=== PATIENT | female | born 1935 | race Caucasian/White ===

== ENCOUNTER 2022-11-08 10:19 | Emergency (ER) | payer OTHER, BC ==
[2022-11-08 10:34] VITALS: BMI 20.9
[2022-11-08] MEDS ORDERED: ACETAMINOPHEN 1000 MG/100 ML BAG IVPB ONE (10:57)
[2022-11-08] MEDS ORDERED: ACETAMINOPHEN INJECTION 100 ML IVPB ONE (11:06)
[2022-11-08 12:11] LABS: BASO % 0.9 % (0-2.0); EOS % 2.8 % (0-4.5); HEMOGLOBIN 14.2 GM/dL (10.7-15.3); LYMPH % 22.7 % (8-40); MCH 29.3 pg (25.7-33.7); MCHC 33.8 g/dl (32.0-36.0); MEAN CELL VOLUME 86.8 fl (80-96); MEAN PLT VOLUME 8.8 fl (7.5-11.1); MONO % 9.7 % (3.8-10.2); NEUT % 63.9 % (42.8-82.8); PLATELET COUNT 222 10^3/uL (134-434); RBC 4.84 M/mm3 (3.60-5.2); RDW 15.3 % (11.6-15.6); WHITE BLOOD COUNT 7.5 K/mm3 (4.0-10.0)
[2022-11-08 12:34] LABS: ALBUMIN 3.5 g/dl (3.4-5.0); BLOOD UREA NITROGEN 11.8 mg/dL (7-18)
[2022-11-08 12:36] LABS: CALCIUM 9.2 mg/dL (8.5-10.1)
[2022-11-08 12:39] LABS: CREATININE 0.7 mg/dL (0.55-1.3)
[2022-11-08 12:40] LABS: TOT PROT 7.4 g/dl (6.4-8.2)
[2022-11-08 12:41] LABS: BILIRUBIN,TOTAL 0.3 mg/dL (0.2-1)
[2022-11-08] MEDS ORDERED: SODIUM CHLORIDE 0.9% 500 ML INFUS.BAG IV ONE (12:59)
[2022-11-08 15:14] VITALS: RESP 16; TEMP 97.5
[2022-11-08 15:50] LABS: EPI CELLS 11 /uL (0-25.1); HYALINE CASTS 3 /uL (0-3.1); PH,URINE 5.5 (5.0-8.0); URINE APPEARANCE TURBID; URINE BACTERIA >9,000 /uL (0-1359); URINE BILIRUBIN NEGATIVE (NEGATIVE); URINE COLOR YELLOW; URINE GLUCOSE (UA) NEGATIVE (NEGATIVE); URINE KETONE NEGATIVE (NEGATIVE); URINE LEUK ESTERASE 3+ (NEGATIVE); URINE NITRITE NEGATIVE (NEGATIVE); URINE PROTEIN 1+ (NEGATIVE); URINE RBC 114 /uL (0-23.9); URINE UROBILINOGEN 0.2 mg/dL (0.2-1.0); URINE WBC 7961 /uL (0-25.8)
[2022-11-08] MEDS ORDERED: PHENAZOPYRIDINE HCL 100 MG TABLET (FP) PO ONE (16:09)
[2022-11-08] MEDS ORDERED: NITROFURANTOIN MACROCRYSTAL 50 MG CAPSULE (FP) PO SCH (16:15)
[2022-11-08] MEDS ORDERED: NITROFURANTOIN MACROCRYSTAL 50 MG CAPSULE (FP) ONE (16:26)
[2022-11-08] MEDS ORDERED: PHENAZOPYRIDINE HCL 100 MG TABLET (FP) ONE (16:27)
[2022-11-08 19:49] VITALS: BP 123/57; PULSE 64
== END 2022-11-08 20:32 | disposition home or self-care (01) ==
LOC: JER 10:19
PROC: 3E033NZ Introduction of Analgesics, Hypnotics, Sedatives into Peripheral Vein, Percutaneous Approach (ICD-10-PCS; principal; 2022-11-08)
DX: N39.0 Urinary tract infection, site not specified (principal); R30.0 Dysuria; R10.30 Lower abdominal pain, unspecified
CPT/HCPCS: 36415; 74177-TC; 80053; 81003; 85025; 87086; 87186; 99285-25; Q9967

== ENCOUNTER 2022-12-14 14:37 | Inpatient (IN) | payer OTHER, BC ==
[2022-12-14 15:49] LABS: BASO % 0.9 % (0-2.0); EOS % 5.7 % (0-4.5); HEMATOCRIT 39.9 % (32.4-45.2); HEMOGLOBIN 13.4 GM/dL (10.7-15.3); LYMPH % 32.8 % (8-40); MCH 29.5 pg (25.7-33.7); MCHC 33.7 g/dl (32.0-36.0); MEAN CELL VOLUME 87.5 fl (80-96); NEUT % 52.6 % (42.8-82.8); PLATELET COUNT 243 10^3/uL (134-434); RBC 4.56 M/mm3 (3.60-5.2); RDW 14.7 % (11.6-15.6); WHITE BLOOD COUNT 8.7 K/mm3 (4.0-10.0)
[2022-12-14 16:10] LABS: POTASSIUM 5.1 mmol/L (3.5-5.1)
[2022-12-14 16:11] LABS: ALBUMIN 3.4 g/dl (3.4-5.0); BLOOD UREA NITROGEN 14.4 mg/dL (7-18); CALCIUM 9.5 mg/dL (8.5-10.1)
[2022-12-14 16:15] LABS: CREATININE 0.5 mg/dL (0.55-1.3)
[2022-12-14 16:16] LABS: BILIRUBIN,TOTAL 0.4 mg/dL (0.2-1); TOT PROT 7.5 g/dl (6.4-8.2)
[2022-12-14 16:50] LABS: EPI CELLS 7 /uL (0-25.1); HYALINE CASTS 1 /uL (0-3.1); PH,URINE 6.5 (5.0-8.0); URINE APPEARANCE TURBID; URINE BACTERIA >9,000 /uL (0-1359); URINE BILIRUBIN NEGATIVE (NEGATIVE); URINE COLOR YELLOW; URINE GLUCOSE (UA) NEGATIVE (NEGATIVE); URINE KETONE NEGATIVE (NEGATIVE); URINE LEUK ESTERASE 3+ (NEGATIVE); URINE NITRITE POSITIVE (NEGATIVE); URINE PROTEIN 2+ (NEGATIVE); URINE RBC 106 /uL (0-23.9); URINE UROBILINOGEN 0.2 mg/dL (0.2-1.0); URINE WBC 7949 /uL (0-25.8)
[2022-12-14] MEDS ORDERED: GENTAMICIN INJECTION 100 MG in SODIUM CHLORIDE 97.5 ML IVPB ONE ×2 (18:26→19:30)
[2022-12-14] MEDS ORDERED: GENTAMICIN 100 MG/100 ML BAG IVPB ONE (18:36)
[2022-12-15] MEDS ORDERED: HEPARIN NA (PORCINE) 5,000 UNITS/ML 1ML VIAL ONE (04:21)
[2022-12-15] MEDS ORDERED: PANTOPRAZOLE 40 MG TABLET PO ONE (04:21)
[2022-12-15] MEDS: PANTOPRAZOLE 40 MG TABLET PO SCH ×2 (04:24→09:33)
[2022-12-15] MEDS: HEPARIN NA (PORCINE) 5,000 UNITS/ML 1ML VIAL SQ SCH ×4 (04:24→21:05)
[2022-12-15] MEDS: LEVOTHYROXINE NA 25 MCG TABLET (FP) PO SCH (07:21)
[2022-12-15] MEDS: ACETAMINOPHEN 325 MG TABLET (FP) PO PRN ×2 (09:33→20:07)
[2022-12-15] MEDS: CHOLECALCIFEROL (VIT D3) 1,000 UNIT (25 MCG) TABLET PO SCH (09:33)
[2022-12-15] MEDS: CYANOCOBALAMIN 1,000 MCG TABLET (FP) PO SCH (10:33)
[2022-12-15] MEDS: ERTAPENEM SODIUM 1 GM in SODIUM CHLORIDE 50 ML IVPB SCH (17:22)
[2022-12-16] MEDS: LEVOTHYROXINE NA 25 MCG TABLET (FP) PO SCH (06:04)
[2022-12-16] MEDS: HEPARIN NA (PORCINE) 5,000 UNITS/ML 1ML VIAL SQ SCH ×3 (06:04→21:22)
[2022-12-16] MEDS: ACETAMINOPHEN 325 MG TABLET (FP) PO PRN ×2 (07:00→18:09)
[2022-12-16] MEDS: CHOLECALCIFEROL (VIT D3) 1,000 UNIT (25 MCG) TABLET PO SCH (09:11)
[2022-12-16] MEDS: PANTOPRAZOLE 40 MG TABLET PO SCH (09:12)
[2022-12-16] MEDS: CYANOCOBALAMIN 1,000 MCG TABLET (FP) PO SCH (09:12)
[2022-12-16 10:41] LABS: BASO % 0.3 % (0-2.0); EOS % 3.5 % (0-4.5); HEMATOCRIT 42.9 % (32.4-45.2); HEMOGLOBIN 14.7 GM/dL (10.7-15.3); LYMPH % 29.2 % (8-40); MCHC 34.2 g/dl (32.0-36.0); MEAN CELL VOLUME 87.8 fl (80-96); MONO % 5.3 % (3.8-10.2); NEUT % 61.7 % (42.8-82.8); PLATELET COUNT 229 10^3/uL (134-434); RBC 4.89 M/mm3 (3.60-5.2); RDW 14.3 % (11.6-15.6); WHITE BLOOD COUNT 6.7 K/mm3 (4.0-10.0)
[2022-12-16] MEDS: ERTAPENEM SODIUM 1 GM in SODIUM CHLORIDE 50 ML IVPB SCH (10:44)
[2022-12-16 11:04] LABS: POTASSIUM 4.2 mmol/L (3.5-5.1)
[2022-12-16 11:12] LABS: CALCIUM 8.9 mg/dL (8.5-10.1)
[2022-12-16 11:15] LABS: CREATININE 0.6 mg/dL (0.55-1.3)
[2022-12-17] MEDS: HEPARIN NA (PORCINE) 5,000 UNITS/ML 1ML VIAL SQ SCH ×3 (06:09→22:12)
[2022-12-17] MEDS: LEVOTHYROXINE NA 25 MCG TABLET (FP) PO SCH (06:09)
[2022-12-17] MEDS: CYANOCOBALAMIN 1,000 MCG TABLET (FP) PO SCH (09:03)
[2022-12-17] MEDS: CHOLECALCIFEROL (VIT D3) 1,000 UNIT (25 MCG) TABLET PO SCH (09:03)
[2022-12-17] MEDS: PANTOPRAZOLE 40 MG TABLET PO SCH (09:03)
[2022-12-17] MEDS: ERTAPENEM SODIUM 1 GM in SODIUM CHLORIDE 50 ML IVPB SCH (10:37)
[2022-12-18] MEDS: ACETAMINOPHEN 325 MG TABLET (FP) PO PRN (04:29)
[2022-12-18] MEDS: LEVOTHYROXINE NA 25 MCG TABLET (FP) PO SCH (06:20)
[2022-12-18] MEDS: HEPARIN NA (PORCINE) 5,000 UNITS/ML 1ML VIAL SQ SCH ×3 (06:20→21:41)
[2022-12-18] MEDS: CHOLECALCIFEROL (VIT D3) 1,000 UNIT (25 MCG) TABLET PO SCH (10:03)
[2022-12-18] MEDS: PANTOPRAZOLE 40 MG TABLET PO SCH (10:03)
[2022-12-18] MEDS: ERTAPENEM SODIUM 1 GM in SODIUM CHLORIDE 50 ML IVPB SCH (10:04)
[2022-12-18] MEDS: CYANOCOBALAMIN 1,000 MCG TABLET (FP) PO SCH (10:04)
[2022-12-19] MEDS: HEPARIN NA (PORCINE) 5,000 UNITS/ML 1ML VIAL SQ SCH ×2 (06:33→14:24)
[2022-12-19] MEDS: LEVOTHYROXINE NA 25 MCG TABLET (FP) PO SCH (06:33)
[2022-12-19] MEDS: PANTOPRAZOLE 40 MG TABLET PO SCH (09:13)
[2022-12-19] MEDS: CHOLECALCIFEROL (VIT D3) 1,000 UNIT (25 MCG) TABLET PO SCH (09:13)
[2022-12-19] MEDS: CYANOCOBALAMIN 1,000 MCG TABLET (FP) PO SCH (09:14)
[2022-12-19] MEDS: ERTAPENEM SODIUM 1 GM in SODIUM CHLORIDE 50 ML IVPB SCH (09:14)
[2022-12-19 13:40] VITALS: BP 115/52; PULSE 79; RESP 18; TEMP 97.8
== END 2022-12-19 20:57 | disposition home or self-care (01) | DRG 690 ==
LOC: JER 14:37 → JERBED 18:35 → J6S 12-15 06:38
PROVIDERS: ADMIT Internal Medicine; ATTEND Internal Medicine
DX: N39.0 Urinary tract infection, site not specified (principal); E03.9 Hypothyroidism, unspecified; G14 Postpolio syndrome; K21.9 Gastro-esophageal reflux disease without esophagitis; I73.9 Peripheral vascular disease, unspecified; R30.0 Dysuria; R33.9 Retention of urine, unspecified; M62.81 Muscle weakness (generalized); E78.5 Hyperlipidemia, unspecified; B96.1 Klebsiella pneumoniae [K. pneumoniae] as the cause of diseases classified elsewhere; B95.2 Enterococcus as the cause of diseases classified elsewhere
CPT/HCPCS: 0241U-QW; 36415; 80048; 80053; 81003; 83690; 85025; 87040; 87086; 87186; 93005; 93010; 97116-GP; 97162-GP; 99285-25; J1644

== ENCOUNTER 2023-01-27 11:42 | Emergency (ER) | payer OTHER, BC ==
[2023-01-27 11:49] VITALS: TEMP 97.5; BMI 20.5
[2023-01-27 12:56] LABS: EPI CELLS 7 /uL (0-25.1); HYALINE CASTS 1 /uL (0-3.1); URINE APPEARANCE CLOUDY; URINE BACTERIA 1718 /uL (0-1359); URINE BILIRUBIN NEGATIVE (NEGATIVE); URINE COLOR YELLOW; URINE GLUCOSE (UA) NEGATIVE (NEGATIVE); URINE KETONE NEGATIVE (NEGATIVE); URINE LEUK ESTERASE 3+ (NEGATIVE); URINE NITRITE NEGATIVE (NEGATIVE); URINE PROTEIN NEGATIVE (NEGATIVE); URINE UROBILINOGEN 0.2 mg/dL (0.2-1.0); URINE WBC 189 /uL (0-25.8)
[2023-01-27] MEDS ORDERED: NITROFURANTOIN MACROCRYSTAL 50 MG CAPSULE (FP) ONE (13:54)
[2023-01-27] MEDS ORDERED: NITROFURANTOIN MACROCRYSTAL 50 MG CAPSULE (FP) PO SCH (14:30)
[2023-01-27 15:33] LABS: URINE CRYSTALS NEGATIVE /hpf; URINE RBC 22.9 /uL (0-23.9); YEAST NEGATIVE (NEGATIVE)
[2023-01-27 18:53] VITALS: BP 112/63; PULSE 71; RESP 18
== END 2023-01-27 18:40 | disposition home or self-care (01) ==
LOC: JER 11:42
DX: R39.15 Urgency of urination (principal); R39.198 Other difficulties with micturition; R39.14 Feeling of incomplete bladder emptying; N30.00 Acute cystitis without hematuria
CPT/HCPCS: 81003; 87086; 87186; 99283-25

== ENCOUNTER 2023-11-06 02:56 | Inpatient (IN) | payer OTHER, BC ==
[2023-11-06] MEDS ORDERED: ACETAMINOPHEN 500 MG TABLET (FP) PO ONE (03:25)
[2023-11-06] MEDS ORDERED: ACETAMINOPHEN INJECTION 100 ML IVPB ONE (03:41)
[2023-11-06] MEDS: ACETAMINOPHEN 1000 MG/100 ML BAG IVPB ONE (04:13)
[2023-11-06 04:24] LABS: HEMOGLOBIN 13.3 GM/dL (10.7-15.3); MEAN PLT VOLUME 9.4 fl (7.5-11.1)
[2023-11-06 04:41] LABS: HEMATOCRIT 38.4 % (32.4-45.2); MCH 30.3 pg (25.7-33.7); MCHC 34.6 g/dl (32.0-36.0); MEAN CELL VOLUME 87.7 fl (80-96); RBC 4.38 M/mm3 (3.60-5.2); RDW 14.5 % (11.6-15.6)
[2023-11-06 04:43] LABS: CHLORIDE 99 mmol/L (98-107); SODIUM 131 mmol/L (136-145)
[2023-11-06] MEDS: SODIUM CHLORIDE 0.9% 500 ML INFUS.BAG IV ONE ×2 (04:44→06:05)
[2023-11-06 04:45] LABS: ALBUMIN 2.9 g/dl (3.4-5.0); BLOOD UREA NITROGEN 20.5 mg/dL (7-18); CALCIUM 9.2 mg/dL (8.5-10.1); CO2 28 mmol/L (21-32); MAGNESIUM 2.2 mg/dL (1.8-2.4)
[2023-11-06 04:46] LABS: GLUCOSE,RANDOM 158 mg/dL (74-106)
[2023-11-06 04:48] LABS: CREATININE 1.2 mg/dL (0.55-1.3); SGOT/AST 72 U/L (15-37); SGPT/ALT 39 U/L (13-61)
[2023-11-06 04:50] LABS: BILIRUBIN,TOTAL 1.5 mg/dL (0.2-1); TOT PROT 7.6 g/dl (6.4-8.2)
[2023-11-06 04:51] LABS: ALK PHOS 95 U/L (45-117)
[2023-11-06 04:59] LABS: WHITE BLOOD COUNT 22.9 K/mm3 (4.0-10.0)
[2023-11-06 05:22] LABS: ANION GAP 3 mmol/L (4-13); POTASSIUM 7.7 mmol/L (3.5-5.1)
[2023-11-06 06:36] LABS: POTASSIUM 4.5 mmol/L (3.5-5.1)
[2023-11-06 06:39] LABS: ALBUMIN 2.3 g/dl (3.4-5.0); BLOOD UREA NITROGEN 21.3 mg/dL (7-18)
[2023-11-06 06:42] LABS: CREATININE 0.9 mg/dL (0.55-1.3)
[2023-11-06 06:44] LABS: TOT PROT 5.7 g/dl (6.4-8.2)
[2023-11-06 06:52] LABS: ANISOCYTOSIS 0; MACROCYTOSIS 0
[2023-11-06 06:53] LABS: PLATELET COUNT 247.5 10^3/uL (134-434)
[2023-11-06 06:57] LABS: INR 1.29 (0.83-1.09); PROTHROMBIN TIME (PATIENT) 14.9 SEC (9.7-13.0)
[2023-11-06 07:00] LABS: ACTIVATED PTT 25.1 SECONDS (25.2-36.5)
[2023-11-06] MEDS ORDERED: CEFTRIAXONE 1 GM/50 ML BAG ONE (07:01)
[2023-11-06] MEDS: CEFTRIAXONE 1 GM in DEXTROSE 5%-WATER - 100 ML IVPB ONE (07:05)
[2023-11-06 07:21] LABS: CALCIUM 7.7 mg/dL (8.5-10.1)
[2023-11-06 08:05] LABS: EPI CELLS 24 /uL (0-25.1); HYALINE CASTS 1 /uL (0-3.1); PH,URINE 6.5 (5.0-8.0); URINE APPEARANCE Turbid; URINE BACTERIA 239 /uL (0-1359); URINE BILIRUBIN Negative (NEGATIVE); URINE COLOR Yellow; URINE GLUCOSE (UA) Negative (NEGATIVE); URINE KETONE Trace (NEGATIVE); URINE LEUK ESTERASE Moderate (NEGATIVE); URINE NITRITE Negative (NEGATIVE); URINE PROTEIN 100 (NEGATIVE); URINE UROBILINOGEN 0.2 mg/dL (0.2-1.0); URINE WBC 21185 /uL (0-25.8)
[2023-11-06] MEDS ORDERED: ONDANSETRON 4 MG/2 ML VIAL IVPUSH PRN (08:06)
[2023-11-06] MEDS ORDERED: LEVOTHYROXINE NA 25 MCG TABLET (FP) ONE (08:18)
[2023-11-06] MEDS ORDERED: PANTOPRAZOLE SODIUM 40 MG VIAL ONE (08:18)
[2023-11-06] MEDS: D5-1/2NS+10 MEQ KCL - 10 MEQ/1,000 ML INFUS.BAG IV SCH ×2 (08:22→13:34)
[2023-11-06] MEDS: LEVOTHYROXINE NA 25 MCG TABLET (FP) PO SCH (08:22)
[2023-11-06] MEDS: PANTOPRAZOLE SODIUM 40 MG VIAL IVPUSH SCH (08:23)
[2023-11-06] MEDS: CHOLECALCIFEROL (VIT D3) 1,000 UNIT (25 MCG) TABLET PO SCH (09:43)
[2023-11-06] MEDS: CYANOCOBALAMIN 1,000 MCG TABLET (FP) PO SCH (09:43)
[2023-11-06 10:13] LABS: URINE RBC 397.7 /uL (0-23.9); YEAST NONE SEEN (NEGATIVE)
[2023-11-06] MEDS ORDERED: ACETAMINOPHEN 325 MG TABLET (FP) ONE (12:24)
[2023-11-06] MEDS: ACETAMINOPHEN 325 MG TABLET (FP) PO PRN (12:27)
[2023-11-06] MEDS ORDERED: ASCORBIC ACID 500 MG TABLET (FP) ONE ×2 (13:38→21:52)
[2023-11-06] MEDS ORDERED: HEPARIN NA (PORCINE) 5,000 UNITS/ML 1ML VIAL ONE ×2 (13:39→21:53)
[2023-11-06] MEDS: HEPARIN NA (PORCINE) 5,000 UNITS/ML 1ML VIAL SQ SCH (13:44)
[2023-11-06] MEDS: ASCORBIC ACID 500 MG TABLET (FP) PO SCH (13:44)
[2023-11-06] MEDS: PANTOPRAZOLE 40 MG TABLET PO SCH (14:26)
[2023-11-06] MEDS ORDERED: ATORVASTATIN CA 10 MG TABLET (FP) ONE (21:52)
[2023-11-06] MEDS ORDERED: TAMSULOSIN HCL 0.4 MG CAP ONE (21:53)
[2023-11-06] MEDS: ATORVASTATIN CA 10 MG TABLET (FP) PO SCH (22:00)
[2023-11-06] MEDS: TAMSULOSIN HCL 0.4 MG CAP PO SCH (22:00)
[2023-11-07 01:11] VITALS: BMI 20.7
[2023-11-07 05:09] VITALS: RESP 18
[2023-11-07] MEDS: CEFTRIAXONE 1 GM in DEXTROSE 5%-WATER - 50 ML IVPB SCH (10:09)
[2023-11-07] MEDS: D5-1/2NS+10 MEQ KCL - 10 MEQ/1,000 ML INFUS.BAG IV SCH (10:09)
[2023-11-07 10:29] LABS: BASO % 0.4 % (0-2.0); EOS % 0.9 % (0-4.5); HEMATOCRIT 38.2 % (32.4-45.2); HEMOGLOBIN 12.8 GM/dL (10.7-15.3); LYMPH % 6.5 % (8-40); MCH 29.8 pg (25.7-33.7); MCHC 33.5 g/dl (32.0-36.0); MEAN PLT VOLUME 9.1 fl (7.5-11.1); MONO % 7.3 % (3.8-10.2); NEUT % 84.9 % (42.8-82.8); PLATELET COUNT 237 10^3/uL (134-434); RDW 14.4 % (11.6-15.6); WHITE BLOOD COUNT 13.1 K/mm3 (4.0-10.0)
[2023-11-07 10:46] LABS: POTASSIUM 3.8 mmol/L (3.5-5.1)
[2023-11-07 10:49] LABS: CALCIUM 8.5 mg/dL (8.5-10.1)
[2023-11-07 10:50] LABS: ALBUMIN 2.6 g/dl (3.4-5.0); BLOOD UREA NITROGEN 13.5 mg/dL (7-18)
[2023-11-07 10:53] LABS: CREATININE 0.8 mg/dL (0.55-1.3)
[2023-11-07 10:54] LABS: TOT PROT 6.4 g/dl (6.4-8.2)
[2023-11-07 10:55] LABS: BILIRUBIN,TOTAL 0.5 mg/dL (0.2-1)
[2023-11-08 08:21] LABS: BASO % 0.4 % (0-2.0); EOS % 1.6 % (0-4.5); HEMATOCRIT 36.9 % (32.4-45.2); HEMOGLOBIN 12.8 GM/dL (10.7-15.3); LYMPH % 9.7 % (8-40); MCH 30.4 pg (25.7-33.7); MCHC 34.6 g/dl (32.0-36.0); MEAN CELL VOLUME 87.8 fl (80-96); MEAN PLT VOLUME 8.6 fl (7.5-11.1); MONO % 9.3 % (3.8-10.2); PLATELET COUNT 271 10^3/uL (134-434); RDW 14.3 % (11.6-15.6); WHITE BLOOD COUNT 8.2 K/mm3 (4.0-10.0)
[2023-11-08 08:54] LABS: POTASSIUM 3.7 mmol/L (3.5-5.1)
[2023-11-08 09:00] LABS: CALCIUM 8.3 mg/dL (8.5-10.1)
[2023-11-08 09:01] LABS: BLOOD UREA NITROGEN 10.2 mg/dL (7-18)
[2023-11-08 09:04] LABS: CREATININE 0.6 mg/dL (0.55-1.3)
[2023-11-08] MEDS: PANTOPRAZOLE 40 MG TABLET PO SCH (09:35)
[2023-11-08] MEDS: D5-1/2NS+10 MEQ KCL - 10 MEQ/1,000 ML INFUS.BAG IV SCH (09:37)
[2023-11-09 09:32] LABS: HEMATOCRIT 37.8 % (32.4-45.2); HEMOGLOBIN 12.9 GM/dL (10.7-15.3); MCH 29.9 pg (25.7-33.7); MEAN CELL VOLUME 87.8 fl (80-96); PLATELET COUNT 272 10^3/uL (134-434); RDW 14.4 % (11.6-15.6); WHITE BLOOD COUNT 7.6 K/mm3 (4.0-10.0)
[2023-11-09 09:57] LABS: POTASSIUM 3.7 mmol/L (3.5-5.1)
[2023-11-09 10:53] LABS: BLOOD UREA NITROGEN 8.8 mg/dL (7-18); CALCIUM 8.1 mg/dL (8.5-10.1)
[2023-11-09 10:56] LABS: CREATININE 0.6 mg/dL (0.55-1.3)
[2023-11-09 12:28] LABS: ANISOCYTOSIS 0; HELMET CELLS 0; HOWELL-JOLLY BODIES 0; MACROCYTOSIS 0; OVALOCYTE 0; ROULEAU 0; SICKELED CELLS 0; TARGET CELLS 0; TEAR DROP CELLS 0; TOXIC GRANULATION 0
[2023-11-09] MEDS: MULTIVITAMINS (DAILY MVI) TABLET (FP) PO SCH (17:43)
[2023-11-10] MEDS: NYSTATIN 100,000 UNIT/GM TOPICAL CREAM 15 GM TUBE TP SCH (16:17)
[2023-11-11 08:57] VITALS: TEMP 98.6
[2023-11-11 09:02] LABS: BASO % 0.5 % (0-2.0); EOS % 2.8 % (0-4.5); HEMATOCRIT 37.4 % (32.4-45.2); HEMOGLOBIN 12.8 GM/dL (10.7-15.3); LYMPH % 15.2 % (8-40); MCH 29.9 pg (25.7-33.7); MCHC 34.4 g/dl (32.0-36.0); MEAN CELL VOLUME 87.1 fl (80-96); MEAN PLT VOLUME 7.9 fl (7.5-11.1); MONO % 9.5 % (3.8-10.2); PLATELET COUNT 318 10^3/uL (134-434); RDW 14.4 % (11.6-15.6); WHITE BLOOD COUNT 8.8 K/mm3 (4.0-10.0)
[2023-11-11 09:45] LABS: POTASSIUM 4.2 mmol/L (3.5-5.1)
[2023-11-11] MEDS: CEFUROXIME AXETIL 500 MG TABLET PO SCH (09:54)
[2023-11-11 10:02] LABS: BLOOD UREA NITROGEN 5.7 mg/dL (7-18); CALCIUM 8.6 mg/dL (8.5-10.1)
[2023-11-11 10:05] LABS: CREATININE 0.6 mg/dL (0.55-1.3)
[2023-11-11 14:30] VITALS: BP 128/72; PULSE 79
== END 2023-11-11 15:35 | disposition home or self-care (01) | DRG 690 ==
LOC: JER 02:56 → JERBED 06:41 → J6S 11-07 00:37
PROVIDERS: ADMIT Internal Medicine; ATTEND Internal Medicine
DX: N39.0 Urinary tract infection, site not specified (principal); B96.20 Unspecified Escherichia coli [E. coli] as the cause of diseases classified elsewhere; E78.5 Hyperlipidemia, unspecified; E03.9 Hypothyroidism, unspecified; K21.9 Gastro-esophageal reflux disease without esophagitis; E77.8 Other disorders of glycoprotein metabolism; D72.829 Elevated white blood cell count, unspecified; E86.0 Dehydration; E88.09 Other disorders of plasma-protein metabolism, not elsewhere classified; E53.8 Deficiency of other specified B group vitamins; R26.81 Unsteadiness on feet; R11.0 Nausea; M62.81 Muscle weakness (generalized); R13.12 Dysphagia, oropharyngeal phase; Z86.12 Personal history of poliomyelitis; Z88.0 Allergy status to penicillin
CPT/HCPCS: 0241U-QW; 36415; 74177-TC; 80048; 80053; 81003; 83605; 83690; 83735; 84484; 85025; 85610; 85730; 87086; 87186; 87324; 87449; 93005; 93010; 97116-GP; 97162-GP; 99285-25; J0131; J1644; Q9967

== ENCOUNTER 2023-12-01 15:50 | Emergency (ER) | payer OTHER, BC ==
[2023-12-01 17:54] LABS: EPI CELLS 5 /uL (0-25.1); HYALINE CASTS 0 /uL (0-3.1); PH,URINE 5.5 (5.0-8.0); URINE APPEARANCE CLOUDY; URINE BACTERIA >9,000 /uL (0-1359); URINE BILIRUBIN NEGATIVE (NEGATIVE); URINE COLOR YELLOW; URINE GLUCOSE (UA) NEGATIVE (NEGATIVE); URINE KETONE NEGATIVE (NEGATIVE); URINE LEUK ESTERASE 3+ (NEGATIVE); URINE NITRITE POSITIVE (NEGATIVE); URINE PROTEIN 1+ (NEGATIVE); URINE RBC 16 /uL (0-23.9); URINE UROBILINOGEN 0.2 mg/dL (0.2-1.0); URINE WBC 1024 /uL (0-25.8)
[2023-12-01 18:58] VITALS: TEMP 98.2; BMI 20.5
[2023-12-02 01:05] VITALS: BP 131/65; PULSE 79; RESP 19
== END 2023-12-02 01:17 ==
LOC: JER 15:50
DX: R10.30 Lower abdominal pain, unspecified (principal); R30.0 Dysuria; R35.0 Frequency of micturition; N39.0 Urinary tract infection, site not specified
CPT/HCPCS: 81003; 87086; 99283-25

== ENCOUNTER 2024-05-02 13:08 | Emergency (ER) | payer OTHER, BC ==
[2024-05-02 13:50] VITALS: RESP 18; TEMP 98.4; BMI 19.9
[2024-05-02] MEDS ORDERED: FLUCONAZOLE 150 MG TABLET PO ONE (14:41)
[2024-05-02 14:44] LABS: EPI CELLS 3 /uL (0-25.1); HYALINE CASTS 1 /uL (0-3.1); PH,URINE 5.5 (5.0-8.0); URINE APPEARANCE CLOUDY; URINE BACTERIA 308 /uL (0-1359); URINE BILIRUBIN NEGATIVE (NEGATIVE); URINE COLOR YELLOW; URINE GLUCOSE (UA) NEGATIVE (NEGATIVE); URINE KETONE TRACE (NEGATIVE); URINE LEUK ESTERASE 2+ (NEGATIVE); URINE NITRITE NEGATIVE (NEGATIVE); URINE PROTEIN 1+ (NEGATIVE); URINE RBC 55 /uL (0-23.9); URINE WBC 2043 /uL (0-25.8)
[2024-05-02] MEDS: FLUCONAZOLE 150 MG TABLET PO ONE (15:04)
[2024-05-02 15:09] LABS: BASO % 0.3 % (0-2.0); EOS % 0.9 % (0-4.5); HEMATOCRIT 38.6 % (32.4-45.2); HEMOGLOBIN 12.8 GM/dL (10.7-15.3); LYMPH % 11.7 % (8-40); MCH 28.4 pg (25.7-33.7); MCHC 33.2 g/dl (32.0-36.0); MEAN CELL VOLUME 85.4 fl (80-96); MEAN PLT VOLUME 7.3 fl (7.5-11.1); MONO % 4.8 % (3.8-10.2); NEUT % 82.3 % (42.8-82.8); PLATELET COUNT 449 10^3/uL (134-434); RBC 4.52 M/mm3 (3.60-5.2); RDW 14.6 % (11.6-15.6); WHITE BLOOD COUNT 17.3 K/mm3 (4.0-10.0)
[2024-05-02 15:43] LABS: POTASSIUM 5.1 mmol/L (3.5-5.1)
[2024-05-02 15:48] LABS: ALBUMIN 2.8 g/dl (3.4-5.0); BLOOD UREA NITROGEN 15.2 mg/dL (7-18)
[2024-05-02 15:51] LABS: CREATININE 0.8 mg/dL (0.55-1.3)
[2024-05-02] MEDS ORDERED: ACETAMINOPHEN 325 MG TABLET (FP) ONE (15:52)
[2024-05-02 15:53] LABS: TOT PROT 7.5 g/dl (6.4-8.2)
[2024-05-02] MEDS: ACETAMINOPHEN 500 MG TABLET (FP) PO ONE (15:55)
[2024-05-02 15:59] LABS: BILIRUBIN,TOTAL 0.4 mg/dL (0.2-1)
[2024-05-02] MEDS: CEFPODOXIME PROXETIL 200 MG TABLET [NF] PO ONE (16:42)
[2024-05-02 23:21] VITALS: BP 112/78; PULSE 76
== END 2024-05-02 23:28 ==
LOC: JER 13:08
DX: N39.0 Urinary tract infection, site not specified (principal); B37.9 Candidiasis, unspecified; R10.2 Pelvic and perineal pain; R10.9 Unspecified abdominal pain
CPT/HCPCS: 36415; 74177-TC; 80053; 81003; 85025; 87086; 99285-25; Q9967